=== PATIENT | male | born 1985 | race Caucasian/White ===

== ENCOUNTER 2020-01-15 20:35 | Emergency (ER) | payer OTHER ==
[~2020-01-15] VITALS: Ht 188 cm; Wt 108.9 kg
[2020-01-15 20:39] VITALS: BP 142/90
[2020-01-15] MEDS ORDERED: NEXIUM 40 MG CA40 M1 PO (21:33)
[2020-01-15] MEDS ORDERED: KEFLEX500 M1 PO (23:20)
[2020-01-15] MEDS ORDERED: TRAMADOL 50 MG50 MG PO (23:20)
== END 2020-01-15 23:50 | disposition home or self-care (01) ==
LOC: ER 20:35
DX: S01.01XA Laceration without foreign body of scalp, initial encounter (principal); Z79.899 Other long term (current) drug therapy; Z91.048 Other nonmedicinal substance allergy status; W39.XXXA Discharge of firework, initial encounter; Y93.89 Activity, other specified; Y92.89 Other specified places as the place of occurrence of the external cause; Y99.8 Other external cause status